=== PATIENT | female | born 1975 | race Hispanic/Latino ===

== ENCOUNTER 2024-10-06 10:18 | Emergency (ER) | payer SELFPAY ==
[~2024-10-06] VITALS: Ht 165.1 cm; Wt 85.7 kg
[2024-10-06 10:28] VITALS: PULSE 65; RESP 17; TEMP 98.4
[2024-10-06 11:48] LABS: CLARITY,URINE CLEAR (CLEAR); COLOR,URINE YELLOW (YELLOW); GLUCOSE, URINE NEGATIVE (NEGATIVE); KETONES,URINE NEGATIVE (NEGATIVE); LEUKOCYTE ESTERASE ,URINE NEGATIVE (NEGATIVE); NITRITE,URINE NEGATIVE (NEGATIVE); PH,URINE 7 (5 - 7); PROTEIN,URINE DIPSTICK NEGATIVE (NEGATIVE); URINE UROBILINOGEN 0.2 mg/dL (0.2 - 1)
[2024-10-06 11:49] LABS: BILIRUBIN,URINE NEGATIVE (NEGATIVE)
[2024-10-06 12:07] LABS: BACTERIA,URINE FEW /HPF; EPITHELIAL CELLS,URINE RARE /LPF; RBC,URINE 0-5 /HPF (0-5); WBC,URINE (MAN) 0-5 /HPF (0-5)
[2024-10-06] MEDS ORDERED: MUCINEX DM ER1 EACH PO (12:37)
[2024-10-06 12:46] VITALS: BP 136/78; PULSE 78; RESP 16; O2SAT 100
== END 2024-10-06 12:47 | disposition home or self-care (01) ==
LOC: ER 10:23
DX: R05.9 Cough, unspecified (principal); R51.9 Headache, unspecified; Z98.84 Bariatric surgery status
CPT/HCPCS: 71046; 81001; 99283